=== PATIENT | male | born 1985 | race African-American/Black ===

== ENCOUNTER 2017-06-28 12:57 | Outpatient (CLI) | payer BC ==
--- NOTE | 2017-06-28 15:58 | MRI ---
MRI OF THE LEFT KNEE WITHOUT CONTRAST: Date: 06/28/17 INDICATION: Left knee pain 8 years ago while playing soccer. Patient mentioned over the last couple of weeks that he has had limited range of motion of left knee with pain. FINDINGS: The ACL, PCL, and MCL are intact. The LCLC appear intact. The medial and lateral menisci appear intact. No full thickness osteochondral defect seen involving the femorotibial compartment. There is a low gr ashtyn partial thickness articular surface fissure involving the median patellar ridge on image 17 of se fred 3 measuring 8.4 mm. Small amount of increased fluid is seen within the superolateral aspect of H offa's fat pad. There is some increased T2 signal within the proximal patellar tendon. The quadriceps mechanism is intact. IMPRESSION: 1. Mild proximal patellar tendinitis. 2. Increased T2 signal within superolateral aspect of Hoffa's fat pad can be seen with lateral femor al condyle-patellar tendon friction syndrome. 3. Low grade articular cartilage fissure of the median patellar ridge. POS: [facility]
== END 2017-06-28 12:58 | disposition home or self-care (01) ==
LOC: SCSMRI 12:57
PROVIDERS: ATTEND Family Medicine
DX: M25.562 Pain in left knee (principal); M76.52 Patellar tendinitis, left knee; R93.7 Abnormal findings on diagnostic imaging of other parts of musculoskeletal system